=== PATIENT | female | born 1985 | race Caucasian/White ===

== ENCOUNTER 2021-09-29 16:43 | Emergency (ER) | payer SELFPAY ==
[~2021-09-29] VITALS: Ht 162.6 cm; Wt 73.0 kg
[2021-09-29] MEDS ORDERED: ACETAMINOPHEN 325MG TABLET PO STA (17:04)
[2021-09-29] MEDS ORDERED: ACET-2708 PO (18:18)
[2021-09-29] MEDS ORDERED: CYCL5TAB PO (18:18)
[2021-09-29 18:29] VITALS: BP 119/80
== END 2021-09-29 18:30 | disposition home or self-care (01) ==
LOC: ER 16:43
DX: S16.1XXA Strain of muscle, fascia and tendon at neck level, initial encounter (principal); R07.89 Other chest pain; M54.9 Dorsalgia, unspecified; V49.40XA Driver injured in collision with unspecified motor vehicles in traffic accident, initial encounter; Y93.89 Activity, other specified; Y92.410 Unspecified street and highway as the place of occurrence of the external cause; Z88.6 Allergy status to analgesic agent
CPT/HCPCS: 71045; 81025; 93005; 99283; Z7610